=== PATIENT | male | born 1965 | race Caucasian/White ===

== ENCOUNTER 2024-01-16 09:02 | Day surgery (SDC) | payer OTHER ==
[2024-01-09 13:53] VITALS: BMI 24.3
[2024-01-16] MEDS ORDERED: BUPIVACAINE HCL/PF 0.25% (2.5MG/ML) 10 ML VIAL ONE (09:24)
[2024-01-16] MEDS ORDERED: BUPIVACAINE HCL/EPINEPHRINE/PF 30 ML VIAL IJ ONE (09:24)
[2024-01-16] MEDS ORDERED: FENTANYL CITRATE/PF 50 MCG/ML VIAL ONE (09:53)
[2024-01-16] MEDS ORDERED: MIDAZOLAM HCL 2 MG/2 ML SINGLE DOSE VIAL ONE (09:53)
[2024-01-16] MEDS ORDERED: PROPOFOL 40 ML ONE (10:05)
[2024-01-16] MEDS ORDERED: SUCCINYLCHOLINE CHLORIDE 200 MG/10 ML SYRINGE ONE (10:08)
[2024-01-16] MEDS ORDERED: ONDANSETRON 4 MG/2 ML VIAL IVPUSH PRN (10:42)
[2024-01-16] MEDS ORDERED: LACTATED RINGERS SOLUTION 1,000 ML IV SCH (10:45)
[2024-01-16 12:06] VITALS: TEMP 97.2
[2024-01-16 12:43] VITALS: BP 122/76; PULSE 58; RESP 18
== END 2024-01-16 12:20 | disposition home or self-care (01) ==
LOC: FASU 09:02
PROVIDERS: ATTEND Orthopaedic Surgery
PROC: 0SQC4ZZ Repair Right Knee Joint, Percutaneous Endoscopic Approach (ICD-10-PCS; principal; 2024-01-16 10:15)
DX: S83.241A Other tear of medial meniscus, current injury, right knee, initial encounter (principal); X58.XXXA Exposure to other specified factors, initial encounter; Y92.9 Unspecified place or not applicable; Y93.9 Activity, unspecified
CPT/HCPCS: 94760